=== PATIENT | male | born 2000 | race African-American/Black ===

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

== ENCOUNTER 2022-01-02 12:16 | Observation (INO) | payer OTHER, BC ==
[2022-01-02 12:20] VITALS: BMI 31.3
[2022-01-02] MEDS ORDERED: SODIUM CHLORIDE 0.9% 500 ML INFUS.BAG IV ONE (12:47)
[2022-01-02 13:04] LABS: BASO % 0.8 % (0-2.0); EOS % 5.2 % (0-4.5); HEMOGLOBIN 13.2 GM/dL (11.7-16.9); LYMPH % 44.9 % (8-40); MCH 22.7 pg (25.7-33.7); MCHC 32.3 g/dl (32.0-35.9); MEAN CELL VOLUME 70.2 fl (80-96); MEAN PLT VOLUME 8.4 fl (7.5-11.1); MONO % 9.7 % (3.8-10.2); NEUT % 39.4 % (42.8-82.8); PLATELET COUNT 214 10^3/uL (134-434); RBC 5.84 M/mm3 (4.00-5.60); RDW 15.5 % (11.9-15.9); WHITE BLOOD COUNT 3.7 K/mm3 (4.0-10.0)
[2022-01-02 13:10] LABS: INR 1.18 (0.83-1.09); PROTHROMBIN TIME (PATIENT) 13.6 SEC (9.7-13.0)
[2022-01-02 13:17] LABS: CHLORIDE 105 mmol/L (98-107); SODIUM 139 mmol/L (136-145)
[2022-01-02 13:20] LABS: CALCIUM 9.6 mg/dL (8.5-10.1); GLUCOSE,RANDOM 77 mg/dL (74-106)
[2022-01-02 13:21] LABS: ALBUMIN 4.2 g/dl (3.4-5.0); ANION GAP 6 MMOL/L (8-16); BLOOD UREA NITROGEN 13.9 mg/dL (7-18); CO2 28 mmol/L (21-32)
[2022-01-02 13:24] LABS: CREATININE 1.3 mg/dL (0.55-1.3); SGOT/AST 508 U/L (15-37); SGPT/ALT 133 U/L (13-61)
[2022-01-02 13:25] LABS: BILIRUBIN,TOTAL 0.6 mg/dL (0.2-1); TOT PROT 7.8 g/dl (6.4-8.2)
[2022-01-02 13:26] LABS: ALK PHOS 62 U/L (45-117)
[2022-01-02 14:25] LABS: URINE APPEARANCE CLEAR; URINE BILIRUBIN NEGATIVE (NEGATIVE); URINE COLOR YELLOW; URINE GLUCOSE (UA) NEGATIVE (NEGATIVE); URINE KETONE TRACE (NEGATIVE); URINE LEUK ESTERASE NEGATIVE (NEGATIVE); URINE NITRITE NEGATIVE (NEGATIVE); URINE PROTEIN NEGATIVE (NEGATIVE); URINE UROBILINOGEN 0.2 mg/dL (0.2-1.0)
[2022-01-02] MEDS ORDERED: LACTATED RINGERS SOLUTION 1,000 ML/1,000 ML INFUS.BAG IV SCH (14:30)
[2022-01-02] MEDS: LACTATED RINGERS SOLUTION 1,000 ML/1,000 ML INFUS.BAG IV SCH ×2 (17:28→23:34)
[2022-01-03] MEDS: LACTATED RINGERS SOLUTION 1,000 ML/1,000 ML INFUS.BAG IV SCH ×3 (03:48→13:31)
[2022-01-03 10:05] LABS: HEMATOCRIT 38.7 % (35.4-49); HEMOGLOBIN 12.6 GM/dL (11.7-16.9); MCH 22.9 pg (25.7-33.7); MCHC 32.7 g/dl (32.0-35.9); MEAN CELL VOLUME 70.3 fl (80-96); MEAN PLT VOLUME 8.5 fl (7.5-11.1); PLATELET COUNT 188 10^3/uL (134-434); RDW 15.5 % (11.9-15.9); WHITE BLOOD COUNT 3.2 K/mm3 (4.0-10.0)
[2022-01-03 10:26] LABS: ALBUMIN 3.6 g/dl (3.4-5.0); BLOOD UREA NITROGEN 13.8 mg/dL (7-18)
[2022-01-03 10:27] LABS: CALCIUM 8.6 mg/dL (8.5-10.1)
[2022-01-03 10:29] LABS: CREATININE 1.1 mg/dL (0.55-1.3); PHOSPHOROUS 3.6 mg/dL (2.5-4.9)
[2022-01-03 10:31] LABS: BILIRUBIN,TOTAL 0.5 mg/dL (0.2-1); TOT PROT 6.8 g/dl (6.4-8.2)
[2022-01-03 18:45] VITALS: BP 117/66; PULSE 49; TEMP 97.7
== END 2022-01-03 19:08 | disposition home or self-care (01) ==
LOC: JER 12:16 → JERBED 14:35 → UNDOADMOB 14:35 → INTOOBSV 14:35 → JERBED 15:21 → J5S 23:43
PROVIDERS: ADMIT Internal Medicine
PROC: 3E0337Z Introduction of Electrolytic and Water Balance Substance into Peripheral Vein, Percutaneous Approach (ICD-10-PCS; principal; 2022-01-02)
DX: M62.82 Rhabdomyolysis (principal); E66.9 Obesity, unspecified; R07.89 Other chest pain; Z68.31 Body mass index [BMI] 31.0-31.9, adult; X58.XXXA Exposure to other specified factors, initial encounter; Y93.89 Activity, other specified; Y92.89 Other specified places as the place of occurrence of the external cause; Y99.0 Civilian activity done for income or pay
CPT/HCPCS: 36415; 76705-TC; 80053; 81003; 82550; 82553; 83735; 84100; 84484; 85025; 85027; 85610; 93005; 93010; 96360; 96361; 99285-25; C9803; G0378; U0003; U0005

== ENCOUNTER 2022-11-16 23:02 | Emergency (ER) | payer BC, OTHER ==
[2022-11-16 23:12] VITALS: BP 130/76; PULSE 55; RESP 17; TEMP 97.9; BMI 29.7
[2022-11-16 23:34] LABS: HEMATOCRIT 42.1 % (35.4-49); HEMOGLOBIN 13.8 G/dL (11.7-16.9); MCHC 32.7 g/dl (32.0-35.9); MEAN CELL VOLUME 70.3 fl (80-96); PLATELET COUNT 193.9 10^3/uL (134-434); RBC 5.99 10^6/uL (4.00-5.60); RDW 17.2 % (11.9-15.9)
[2022-11-16 23:51] LABS: ALBUMIN 4.1 g/dl (3.4-5.0); BILIRUBIN,TOTAL 0.6 mg/dl (0.2-1); CALCIUM 9.5 mg/dl (8.5-10); CREATININE 1.4 mg/dl (0.55-1.3); TOT PROT 6.9 g/dl (6.4-8.2)
== END 2022-11-17 00:01 | disposition home or self-care (01) ==
LOC: FER 23:02
DX: N30.01 Acute cystitis with hematuria (principal)
CPT/HCPCS: 36415; 80053; 81003; 81015; 85027; 87086; 99283-25; C9803-CS; U0003; U0005

== ENCOUNTER 2022-11-25 13:41 | Emergency (ER) | payer OTHER ==
[2022-11-25 13:51] VITALS: RESP 18; TEMP 97.7; BMI 30.8
[2022-11-25 16:17] LABS: EPI CELLS 2 /uL (0-25.1); HYALINE CASTS 0 /uL (0-3.1); URINE APPEARANCE CLEAR; URINE BACTERIA 0 /uL (0-1359); URINE BILIRUBIN NEGATIVE (NEGATIVE); URINE COLOR YELLOW; URINE GLUCOSE (UA) NEGATIVE (NEGATIVE); URINE KETONE NEGATIVE (NEGATIVE); URINE LEUK ESTERASE NEGATIVE (NEGATIVE); URINE NITRITE NEGATIVE (NEGATIVE); URINE PROTEIN NEGATIVE (NEGATIVE); URINE RBC 130 /uL (0-23.9); URINE WBC 4 /uL (0-25.8)
[2022-11-25 16:19] LABS: ALBUMIN 3.9 g/dl (3.4-5.0); CALCIUM 9.2 mg/dL (8.5-10.1)
[2022-11-25 16:20] LABS: BLOOD UREA NITROGEN 12.7 mg/dL (7-18)
[2022-11-25 16:23] LABS: CREATININE 1.3 mg/dL (0.55-1.3)
[2022-11-25 16:24] LABS: BILIRUBIN,TOTAL 0.3 mg/dL (0.2-1); TOT PROT 7.4 g/dl (6.4-8.2)
[2022-11-25 16:39] VITALS: BP 128/59; PULSE 56
== END 2022-11-25 17:00 | disposition home or self-care (01) ==
LOC: JER 13:41
DX: N20.0 Calculus of kidney (principal)
CPT/HCPCS: 36415; 74176-TC; 80053; 81003; 87086; 99284-25

== ENCOUNTER 2025-07-04 16:23 | Emergency (ER) | payer OTHER ==
[2025-07-04 16:26] VITALS: BP 129/75; PULSE 81; RESP 18; TEMP 98.1; BMI 30.4
[2025-07-04] MEDS: SODIUM CHLORIDE 1,000 ML IV STA ×2 (17:05→19:00)
[2025-07-04 17:13] LABS: ABSOLUTE IMMATURE GRANULOCYTES 0.04 x10^3/uL (0.0-0.031); BASOPHILS # 0.04 x10^3/uL (0.01-0.08); EOSINOPHIL % 0.7 % (0.8-7.0); EOSINOPHILS # 0.07 x10^3/uL (0.04-0.54); MCHC 31.0 g/dl (32.3-36.5); MEAN CELL VOLUME 73.3 fl (79.0-92.2); MEAN PLT VOLUME 10.0 fl (9.4-12.4); MONOCYTE # 0.56 x10^3/uL (0.30-0.82); MONOCYTE % 5.7 % (5.3-12.2); RDW 15.3 % (11.9-15.3)
[2025-07-04 17:15] LABS: URINE APPEARANCE CLEAR; URINE BILIRUBIN NEGATIVE (NEGATIVE); URINE COLOR YELLOW; URINE GLUCOSE (UA) NEGATIVE (NEGATIVE); URINE KETONE TRACE (NEGATIVE); URINE LEUK ESTERASE NEGATIVE (NEGATIVE); URINE NITRITE NEGATIVE (NEGATIVE); URINE PROTEIN TRACE (NEGATIVE); URINE UROBILINOGEN 1.0 mg/dL (0.2-1.0)
[2025-07-04 17:36] LABS: GLUCOSE,RANDOM 61.0 mg/dL (74-106)
[2025-07-04 17:37] LABS: TOT PROT 8.9 g/dl (6.4-8.2)
[2025-07-04 17:38] LABS: CO2 28.0 mmol/L (21-32)
[2025-07-04 17:39] LABS: ALK PHOS 60.0 U/L (40-150)
[2025-07-04 17:42] LABS: SGOT/AST 44.0 U/L (5-34); SGPT/ALT 39.0 U/L (0-55)
[2025-07-04 18:10] LABS: CREATININE 1.72 mg/dL (0.55-1.3)
[2025-07-04 19:32] LABS: CREATININE 1.53 mg/dL (0.55-1.3)
== END 2025-07-04 19:43 | disposition home or self-care (01) ==
LOC: JERFT 16:23
PROC: 3E0337Z Introduction of Electrolytic and Water Balance Substance into Peripheral Vein, Percutaneous Approach (ICD-10-PCS; principal; 2025-07-04)
PROC: 3E0337Z Introduction of Electrolytic and Water Balance Substance into Peripheral Vein, Percutaneous Approach (ICD-10-PCS; 2025-07-04)
DX: E86.0 Dehydration (principal); R53.83 Other fatigue; R53.1 Weakness; R25.2 Cramp and spasm
CPT/HCPCS: 36415; 80053; 81003; 82550; 82565; 84520; 85025; 99283-25